=== PATIENT | male | born 1995 | race Caucasian/White ===

== ENCOUNTER 2017-04-19 09:48 | Emergency (ER) | payer MEDICAID ==
--- NOTE | 2017-04-19 10:01 | NUR ---
No answer when called and per admitting staff, went out to smoke.
--- NOTE | 2017-04-19 10:32 | NUR ---
now, does not want to be seen because he does not want to pay. Explained to him that I don't know regarding billing status and what medical will pay for. Also explained to him that it does not matter if he can pay or not that we will take care of his concerns. Still insisted to leave.
== END 2017-04-19 10:32 | disposition left against medical advice (07) ==
LOC: SED 09:48
DX: Z53.21 Procedure and treatment not carried out due to patient leaving prior to being seen by health care provider (principal)

== ENCOUNTER 2019-07-23 21:02 | Emergency (ER) | payer SELFPAY ==
[~2019-07-23] VITALS: Ht 180.3 cm; Wt 72.6 kg
[2019-07-23 21:02] VITALS: BP_SYST 140
[2019-07-23] MEDS ORDERED: ONDANSETRON 4 MG ODT TAB PO ONE (21:30)
[2019-07-23 21:59] LABS: BASOPHILS # (AUTO) 0.1 K/uL (0.0-0.2); BASOPHILS % (AUTO) 0.8 % (0.0-2.0); EOSINOPHILS % (AUTO) 0.3 % (0.0-4.0); HEMATOCRIT 51.5 % (36-54); HEMOGLOBIN 17.3 g/dL (14.0-18.0); LYMPHOCYTES # (AUTO) 0.6 K/uL (1.0-5.5); LYMPHOCYTES % (AUTO) 9.9 % (20.5-51.5); MEAN CORPUSCULAR HEMOGLOBIN 32 pg (27-31); MEAN CORPUSCULAR HGB CONC 34 % (32-36); MEAN CORPUSCULAR VOLUME 97 fL (79.0-98.0); MONOCYTES # (AUTO) 0.2 K/uL (0.0-1.0); MONOCYTES % (AUTO) 3.5 % (1.7-9.3); NEUTROPHILS # (AUTO) 5.5 K/uL (1.8-7.7); NEUTROPHILS % (AUTO) 85.5 % (40.0-70.0); PLATELET COUNT (AUTO) 200 K/uL (130-430); RED BLOOD CELL COUNT(AUTO) 5.34 MIL/uL (4.2-6.2); RED CELL DISTRIBUTION WIDTH 13.1 % (9.0-15.0); WHITE BLOOD COUNT (AUTO) 6.4 K/uL (4.8-10.8)
[2019-07-23 22:12] LABS: CALCIUM 9.5 mg/dL (8.4-11.0); CREATININE 0.84 mg/dL (0.55-1.30); POTASSIUM 4.3 mmol/L (3.5-5.1); PROTHROMBIN TIME 9.7 SECS (9.5-12.5)
[2019-07-23 22:18] LABS: ALBUMIN 4.3 g/dL (3.4-4.8); TOTAL BILIRUBIN 0.6 mg/dL (0.0-1.0)
[2019-07-23 23:10] VITALS: BP_SYST 140
== END 2019-07-23 23:10 | disposition home or self-care (01) ==
LOC: SED 21:02
DX: R10.84 Generalized abdominal pain (principal); R79.89 Other specified abnormal findings of blood chemistry; F10.129 Alcohol abuse with intoxication, unspecified; Y90.7 Blood alcohol level of 200-239 mg/100 ml
CPT/HCPCS: 36415; 80053; 82150; 83690; 85025; 85610; 99283; G0482; Q0162

== ENCOUNTER 2019-08-07 21:40 | Inpatient (IN) | payer MEDICAID ==
[~2019-08-07] VITALS: Ht 180.3 cm; Wt 75.3 kg
[2019-08-07 21:40] VITALS: BP_SYST 145
--- NOTE | 2019-08-07 21:40 | NUR ---
Patient to ER bed 06 to gown for evaluation. Side rails up. Report given to SHAGGY Gardner.
--- NOTE | 2019-08-07 21:40 | NUR ---
Placed in room 06 . Placed on ekg monitor tech, blood pressure machine and pulse oximeter. To gown for exam. Side rails up.
--- NOTE | 2019-08-07 21:42 | NUR ---
Patient brought in ALS new onset of seizures. Report given by EMS is patient has been drinking alcohol today. Patient is reportedly a recovering alcoholic. Patient fell floor had a 1 minute tonic clonic seizure. Denies any KO. Oral trauma to tongue noted. No bleeding noted at this time. Patient reports no HX of seizures and also complaining of left sided abdominal pain. 10/16. Patient arrived with 18 gauge angiocath to left AC. Seizure pads placed. No other complaints/injuries per patient or as noted. Will continue to monitor.
[2019-08-07] MEDS ORDERED: NACL 0.9% 1,000 ML IV ONE ×2 (21:47→23:17)
--- NOTE | 2019-08-07 21:49 | NUR ---
ER Dr. Gusman at bedside examining patient.
[2019-08-07 22:21] LABS: CALCIUM 9.2 mg/dL (8.4-11.0); CREATININE 1.25 mg/dL (0.55-1.30); POTASSIUM 3.3 mmol/L (3.5-5.1)
[2019-08-07 22:25] LABS: BASOPHILS % (AUTO) 0.7 % (0.0-2.0); EOSINOPHILS # (AUTO) 0.1 K/uL (0.0-0.4); EOSINOPHILS % (AUTO) 1.8 % (0.0-4.0); HEMATOCRIT 50.2 % (36-54); HEMOGLOBIN 17.1 g/dL (14.0-18.0); LYMPHOCYTES # (AUTO) 1.6 K/uL (1.0-5.5); LYMPHOCYTES % (AUTO) 22.2 % (20.5-51.5); MEAN CORPUSCULAR HEMOGLOBIN 33 pg (27-31); MEAN CORPUSCULAR HGB CONC 34 % (32-36); MEAN CORPUSCULAR VOLUME 98 fL (79.0-98.0); MONOCYTES % (AUTO) 14.3 % (1.7-9.3); NEUTROPHILS # (AUTO) 4.4 K/uL (1.8-7.7); RED BLOOD CELL COUNT(AUTO) 5.13 MIL/uL (4.2-6.2); WHITE BLOOD COUNT (AUTO) 7.1 K/uL (4.8-10.8)
[2019-08-07 22:26] LABS: TOTAL BILIRUBIN 0.7 mg/dL (0.0-1.0)
--- NOTE | 2019-08-07 22:54 | NUR ---
CONTACT INFO: JACI (MOTHER)
[2019-08-07 22:59] LABS: PLATELET COUNT (AUTO) 162 K/uL (130-430)
[2019-08-07 23:02] LABS: BILIRUBIN,URINE NEGATIVE (NEGATIVE); BLOOD, URINE 2+ (NEGATIVE); CLARITY/URINE CLEAR (CLEAR); COLOR,URINE YELLOW (YELLOW); GLUCOSE,URINE NEGATIVE (NEGATIVE); KETONES,URINE 2+ (NEGATIVE); LEUKOCYTE ESTERASE ,URINE NEGATIVE (NEGATIVE); NITRITE, URINE NEGATIVE (NEGATIVE); PH,URINE 5.5 (5.0-8.0); PROTEIN URINE 3+ (NEGATIVE); UROBILINOGEN,URINE 0.2 (0.2-1.0)
--- NOTE | 2019-08-07 23:07 | NUR ---
Patient's code status is FULL CODE paperwork completed and placed in chart.
--- NOTE | 2019-08-07 23:08 | NUR ---
PATIENT REPORTS NOT TAKING ANY MEDICATIONS
[2019-08-07 23:13] LABS: BACTERIA,URINE MODERATE /HPF (None Seen)
[2019-08-07 23:14] LABS: FINE GRANULAR CASTS,URINE 0-10 /LPF (None Seen)
[2019-08-07] MEDS ORDERED: LORazepam 2 MG/ML VIAL IVP ONE (23:15)
[2019-08-07 23:16] LABS: BARBITURATE, URINE NEGATIVE (NEG <=200); BENZODIAZEPINE, URINE NEGATIVE (NEG <=150); CANNABINOID, URINE POSITIVE (NEG <=50); COCAINE, URINE NEGATIVE (NEG <=150); METHAMPHETAMINES SCREEN,URINE NEGATIVE (NEG <=500); OPIATE, URINE NEGATIVE (NEG <=100); PHENCYCLIDINE SCREEN,URINE NEGATIVE (NEG <=25); UR TRICYCLIC ANTIDEPRESSANTS NEGATIVE (NEG <=300); URINE AMPHETAMINE NEGATIVE (NEG <=500); URINE METHADONE NEGATIVE (NEG <=200); URINE OXYCODONE SCREEN NEGATIVE (NEG <=100); URINE PROPOXYPHENE SCREEN NEGATIVE (NEG <=300)
[2019-08-07] MEDS ORDERED: POTASSIUM CHLORIDE 20 MEQ TAB.PRT.SR PO ONE (23:30)
[2019-08-07] MEDS: POTASSIUM CHLORIDE 20 MEQ in NACL 0.9% 1,000 ML IV SCH (23:31)
[2019-08-07] MEDS ORDERED: ONDANSETRON HCL 4 MG/2 ML VIAL IVP PRN (23:45)
[2019-08-07] MEDS ORDERED: ACETAMINOPHEN 325 MG TABLET PO PRN (23:45)
[2019-08-07] MEDS ORDERED: LORazepam 2 MG/ML VIAL IVP PRN (23:45)
--- NOTE | 2019-08-08 00:16 | NUR ---
Patient will be admitted to care of Dr. Moore. Admitted to tele unit. Will go to room 118B. Belongings list completed. Complete and up to date summary report printed. SBAR report to be given at bedside with opportunity for questions.
--- NOTE | 2019-08-08 00:17 | NUR ---
Transfer to tele via ACLS protocol. Licensed nurse present. IV present no signs or symptoms of infiltration.
[2019-08-08 00:24] VITALS: BP_SYST 133
--- NOTE | 2019-08-08 00:24 | NUR ---
ADMISSION NOTE Received patient from ER via gurney. Patient admitted with diagnosis of New Onset Seizure under medical supervision of Dr. Moore. Patient is awake, alert, oriented X4. Patient oriented to hospital room, call light, toileting, pain management and safety-teach back done. Personal belongings checked and Belongings List documented. Call light within reach.
--- NOTE | 2019-08-08 02:30 | NUR ---
ROUNDS: Patient is asleep at this time. No s/s of acute distress noted. Breathing even and unlabored. Bed alarm on, seizure pads in place, bed locked in lowest position, call light with patient. Will continue to monitor.
[2019-08-08] MEDS ORDERED: KCL 20 mEq in NS 1000 mL 1,000 ML IV ONE (02:41)
--- NOTE | 2019-08-08 04:15 | NUR ---
ROUNDS: Patient is awake at this time. Patient was hoping to be D/C by noon, I had to inform the patient this probably was not possible. I educated him on his condition, the possibility of having more tests ordered, assessment by the physician, etc. Patient verbalized understanding. Patient has been educated about the call light. Patient is verbalized the importance of the call light and properly demonstrated its use. Bed alarm is on, bed is locked in lowest position, call light with patient. Will continue to monitor.
--- NOTE | 2019-08-08 06:15 | NUR ---
CLOSING NOTE: Patient is awake at this time. Breathing is even and unlabored. No s/s of acute distress. IVF are infusing well. IV site is patent, without signs of infiltration or infection. Seizure pads are in place. Bed alarm is on, bed is locked in lowest position, call light with patient. Will continue to monitor until dayshift nurse receives report.
[2019-08-08] MEDS ORDERED: BANANA BAG 1 EA, MVI 10 ML, THIAMINE HCL 100 MG, FOLIC ACID 1 MG, MAGNESIUM SULFATE 1 G... IV SCH ×5 (08:30)
--- NOTE | 2019-08-08 08:35 | NUR ---
CONSULT CHRIS. CONSULTING MD: Katlin DUFF SPOKE TO: ANTHONY DIALED: [phone] ORDERED BY: DR. HERNANDEZ CONSULT REASON: SEIZURE, ETOH
[2019-08-08] MEDS: FAMOTIDINE 20 MG TABLET PO SCH (09:06)
[2019-08-08] MEDS: chlordiazePOXIDE HCL 25 MG CAPSULE PO SCH ×3 (09:06→20:31)
[2019-08-08] MEDS: THIAMINE HCL 100 MG, MAGNESIUM SULFATE 1 GM in NS 100 ML IV SCH (11:07)
[2019-08-08] MEDS: FOLIC ACID 1 MG, MVI 10 ML in NACL 0.9% 1,000 ML IV SCH (11:08)
[2019-08-08 12:00] VITALS: BP_SYST 141
[2019-08-08] MEDS ORDERED: POTASSIUM CHLORIDE 20 MEQ TAB.PRT.SR PO ONE (12:45)
[2019-08-08] MEDS: POTASSIUM CHLORIDE 20 MEQ in NACL 0.9% 1,000 ML IV SCH (12:51)
[2019-08-08] MEDS ORDERED: NICOTINE 21 MG/24 HR PATCH.TD24 TD ONE (16:15)
[2019-08-08 17:22] VITALS: BP_SYST 138
--- NOTE | 2019-08-08 19:15 | NUR ---
All safety precautions and SZ precautions in place. No SZ activity noted or reported during shift. Pt safety maintained during shift.
[2019-08-08 20:00] VITALS: BP_SYST 145
--- NOTE | 2019-08-08 23:00 | NUR ---
i have assumed the care of the pt for the remainder of the shift.to review the dr's orders. Addendum: 08/09/19 at 0308 by Kulwinder Quevedo RN i have received the pt's report/data from cookie
--- NOTE | 2019-08-09 | NUR ---
pt.assessed v/s assessed;values w/in normal limits.no c/o pain,nausea.pt.capable to reposition self.pt.ambulating to the restroom.urinal w/in reach of the pt.pt has removed the iv access x2.to re-establish the iv access.i have apprised the pt.that snacks beverages are available w/in the shift.i have provided jello x2 servings.call light/telephone w/in reach of the pt.
[2019-08-09] MEDS: POTASSIUM CHLORIDE 20 MEQ in NACL 0.9% 1,000 ML IV SCH (00:47)
--- NOTE | 2019-08-09 01:00 | NUR ---
i have re-established the iv access#24g location;lt.forearm.i have re-connected the iv fluids.pt.had ambulated to the restroom; i have assessed the gait;wnl;steady.i have assessed the pt's return to bed;gait wnl;steady.call light/telephone w/in reach of the pt.
--- NOTE | 2019-08-09 02:00 | NUR ---
pt.assessed pt.presents quiescent affect;calm,somnolent.iv access intact;patent iv fluids infusing.general status stable. respiratory status stable;unlabored.call light/telephone w/in reach of the pt.
--- NOTE | 2019-08-09 04:00 | NUR ---
pt.assessed.pt.presents quiescent affect;calm,somnolent.iv access intact;patent iv fluids infusing.pt.capable to reposition self.general status stable.respiratory status stable;unlabored.call light/telephone w/in reach of the pt.
--- NOTE | 2019-08-09 06:27 | NUR ---
pt.assessed.pt.presents quiescent affect;calm,somnolent.iv access intact;patent iv fluids infusing.pt.capable to reposition self. general status stable.respiratory status stable;unlabored.call light/telephone w/in reach of the pt.
[2019-08-09 06:50] LABS: ALBUMIN 3.2 g/dL (3.4-4.8); CALCIUM 8.2 mg/dL (8.4-11.0); CREATININE 0.62 mg/dL (0.55-1.30); POTASSIUM 4.1 mmol/L (3.5-5.1)
[2019-08-09] MEDS ORDERED: NICOTINE 21 MG/24 HR PATCH.TD24 TD SCH (09:00)
[2019-08-09] MEDS: FAMOTIDINE 20 MG TABLET PO SCH (10:34)
[2019-08-09] MEDS: chlordiazePOXIDE HCL 25 MG CAPSULE PO SCH (10:34)
[2019-08-09] MEDS: THIAMINE HCL 100 MG, MAGNESIUM SULFATE 1 GM in NS 100 ML IV SCH (12:08)
[2019-08-09] MEDS: FOLIC ACID 1 MG, MVI 10 ML in NACL 0.9% 1,000 ML IV SCH (12:10)
[2019-08-09 12:14] VITALS: BP_SYST 147
--- NOTE | 2019-08-09 15:00 | NUR ---
Pt A/O x4. Frequently walked hallway today. All safety precautions and SZ precautions in place. No SZ activity noted or reported during shift. Discharge instructions given by SHAGGY Mena. PIV removed. Pt verbalized understanding of all discharge instructions. Pt encouraged to stop drinking alcohol and stop smoking cigarettes. Pt with Nicotine Patch 21 mg to left shoulder at this time. Pt verbalized that he is interested in stopping alcohol consumption, but not stopping smoking cigarettes. Reinforced importance of stopping cigarette smoking due to adverse effects of cigarette smoking. Pt provided with handout and resources to help stop smoking and stop alcohol consumption. Pt verbalized understanding. Pt safety maintained during shift. Pt safely discharged.
[2019-08-09] MEDS ORDERED: FAMO20TA8 PO (15:14)
[2019-08-09] MEDS ORDERED: THIA100T73 PO (15:15)
[2019-08-09] MEDS ORDERED: LIB25 PO (15:15)
[2019-08-09] MEDS ORDERED: FOLI-43 PO (15:16)
[2019-08-09 15:23] VITALS: BP_SYST 147
== END 2019-08-09 15:40 | disposition home or self-care (01) | DRG 53 ==
LOC: SED 21:40 → STU 23:31 → SMU 08-09 10:15
PROVIDERS: ADMIT Internal Medicine; ATTEND Internal Medicine
DX: G40.509 Epileptic seizures related to external causes, not intractable, without status epilepticus (principal); E87.2 Acidosis; F10.288 Alcohol dependence with other alcohol-induced disorder; F10.239 Alcohol dependence with withdrawal, unspecified; E87.6 Hypokalemia; F17.200 Nicotine dependence, unspecified, uncomplicated
CPT/HCPCS: 36415; 70450-TC; 76700-TC; 80053; 80307; 81000-TC; 83735-TC; 84484; 85025; 87086; 93005; 96361; 96374; 99285; G0378; G0482; J2060; J3411; J3475; J3480; J3490; J7030